=== PATIENT | male | born 1980 | race Hispanic/Latino ===

== ENCOUNTER 2018-07-27 16:20 | Emergency (ER) | payer OTHER, BC ==
[~2018-07-27] VITALS: Ht 152.4 cm; Wt 54.5 kg
[2018-07-27 17:04] VITALS: BP 120/80
== END 2018-07-27 17:15 | disposition home or self-care (01) | DRG 951 ==
LOC: ED 16:20
DX: Z20.811 Contact with and (suspected) exposure to meningococcus (principal); Y99.0 Civilian activity done for income or pay

== ENCOUNTER 2019-02-01 11:33 | Emergency (ER) | payer OTHER, BC ==
[~2019-02-01] VITALS: Ht 152.4 cm; Wt 64.0 kg
[2019-02-01 12:45] VITALS: BP 118/76
== END 2019-02-01 12:45 | disposition home or self-care (01) | DRG 951 ==
LOC: ED 11:33
DX: Z77.21 Contact with and (suspected) exposure to potentially hazardous body fluids (principal)

== ENCOUNTER 2019-11-11 | Emergency (ER) | payer OTHER, BC | END 2019-11-11 19:04 | disposition home or self-care (01) | DRG 951 | DX: Z20.89 Contact with and (suspected) exposure to other communicable diseases (principal) ==